=== PATIENT | female | born 1950 | race Caucasian/White ===

== ENCOUNTER 2018-08-29 06:10 | Day surgery (SDC) | payer OTHER, MEDICARE ==
[2018-08-28 10:54] VITALS: BMI 18.9
[~2018-08-29 06:10] MED LIST: TOBRAMYCIN/DEXAMETHASONE OPHTH. OINTMENT 1 TUBE OS ONE
[2018-08-29] MEDS: TROPICAMIDE 1% OPHTH SOLN 15 ML BOTTLE OP SCH ×3 (06:40→07:15)
[2018-08-29] MEDS: CIPROFLOXACIN HCL 0.3% OPHTH 2.5ML BOTTLE OP SCH ×3 (06:40→07:15)
[2018-08-29] MEDS: KETOROLAC TROMETHAMINE 0.5% EYE DROP 1 DROP DROPS OP SCH ×3 (06:40→07:15)
[2018-08-29] MEDS: PHENYLEPHRINE 2.5% OPHTH SOLN 15 ML BOTTLE OP SCH ×3 (06:40→07:15)
[2018-08-29] MEDS ORDERED: TROPICAMIDE 0.5% OPHTHALMIC SOLN 15 ML BOTTLE ONE (06:44)
[2018-08-29] MEDS ORDERED: ACETAMINOPHEN 325 MG TABLET (FP) PO PRN (07:00)
[2018-08-29] MEDS ORDERED: CHONDROITIN SU A/HYALUR SOD 1 KIT ONE (07:10)
[2018-08-29] MEDS ORDERED: TETRACAINE 0.5% OPHTH SOLN 2 ML BOTTLE ONE (07:21)
[2018-08-29] MEDS ORDERED: EPINEPHrine/PF 1 MG/1 ML (1:1,000) AMPULE ONE (07:21)
[2018-08-29] MEDS ORDERED: TOBRAMYCIN/DEXAMETHASONE OPHTH. OINTMENT 1 TUBE ONE (07:21)
[2018-08-29] MEDS ORDERED: LIDOCAINE HCL/PF 1% SDV 5ML VIAL ONE (07:21)
[2018-08-29] MEDS ORDERED: POVIDONE-IODINE 5% OPHTHALMIC PREP 30 ML SOLUTION ONE (07:22)
--- NOTE | 2018-08-29 07:26 | HP ---
- Patient Scheduled date of Surgery: 08/29/18 Scheduled Surgical Procedure: Phacoemulsification and cataract extraction with PCIOL Affected Eye: Left Chief Complaint (Indication for surgery): Decreased vision affecting ADLs - Ocular History Other Eye History: Other (HZO, narrow angles, OHTN) Eye Medications: besivance Previous Eye Surgery: none - Medical History Current Medications: Ambulatory Orders Albuterol Sulfate [Proair Respiclick] 90 mcg IH Q4H 08/28/18 Calcium Carb/Vitamin D3/Vit K1 [Calcium + D Soft Chewable Tab] 1 each PO DAILY 08/28/18 Fluticasone Furoate [Arnuity Ellipta] 200 mcg IH DAILY 08/28/18 Furosemide [Lasix] 20 mg PO DAILY 08/28/18 Potassium Chloride [Klor-Con M10] 10 meq PO DAILY 08/28/18 Prednisone 5 mg PO BID 08/28/18 Allergies/Adverse Reactions: Allergies Allergy/AdvReac Type Severity Reaction Status Date / Time No Known Allergies Allergy Verified 08/29/18 07:20 Ocular Examination - Best Corrected Visual Acuity Distance: Right eye: 20/30 Distance: Left eye: 20/40 - External/Slit Lamp Examination Abnormalities: shallow peripherally - Intraocular Pressure Intraocular Pressure - Right eye: 17 Intraocular Pressure-Left eye: 19 - Lens Lens: 2+ NS 1+ cortical +1 psc - Vitreous/Retina Vitreous/Retina: c:d 0.2 m/v/p wnl - Special Examination M - Right eye: -1.50-0.50 x 90 M - Left eye: -0.75- 0.75 x 090 K - Right eye: 46.25/47 x 180 K - Left eye: 46.50/47.75 x 175 AL - Right eye: 23.24 AL - Left eye: 23.11 IOL bag: +18.5 AUOOTO IOL sulcus: +17.5 MN60 AC IOL AC: +15.0 MTA 4uo - Impression Impression: Cataract Left Eye - Plan Plan: Phacoemulsification and cataract extraction - IOL Left eye Post-hospital care will be provided in office on: 08/30/18
--- NOTE | 2018-08-29 07:28 | HP ---
History & Physical Update - History History: Change (see notes) (malignant neoplasm of tongue) - Physical Physical: No Change - Assessment Assessment: No Change - Plan Plan: No Change (Reviewed Dr. Hermosillo's H an P from 08/02/18 no , maligant neoplasm of tongue)
[2018-08-29] MEDS ORDERED: MIDAZOLAM HCL 2 MG/2 ML SINGLE DOSE VIAL ONE (07:53)
[2018-08-29] MEDS ORDERED: TETRACAINE 0.5% OPHTH SOLN 2 ML BOTTLE OS ONE (07:58)
[2018-08-29] MEDS ORDERED: POVIDONE-IODINE 5% OPHTHALMIC PREP 30 ML SOLUTION OS ONE (07:59)
[2018-08-29] MEDS ORDERED: LIDOCAINE HCL 1% PRESERVATIVE FREE - 30ML VIAL IO ONE (08:06)
[2018-08-29] MEDS ORDERED: BSS (NA/CA/MG/K) BALANCED SALT SOLUTION OPHTH SOLN 15 ML BOTTLE OS ONE ×2 (08:06)
[2018-08-29] MEDS ORDERED: CHONDROITIN SU A/HYALUR SOD 1 KIT IO ONE (08:06)
[2018-08-29] MEDS ORDERED: EPINEPHrine/PF 1 MG/1 ML (1:1,000) AMPULE SQ ONE (08:13)
[2018-08-29] MEDS ORDERED: TOBRAMYCIN/DEXAMETHASONE OPHTH. OINTMENT 1 TUBE OS ONE (08:29)
--- NOTE | 2018-08-29 08:44 | OP ---
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
[2018-08-29 09:40] VITALS: TEMP 98
[2018-08-29 10:45] VITALS: BP 117/60; PULSE 87
--- NOTE | 2018-08-29 10:50 | OP ---
DATE OF OPERATION: 08/29/2018 DATE OF DICTATION: 08/29/2018 PREOPERATIVE DIAGNOSIS: Nuclear sclerotic cataract, left eye. POSTOPERATIVE DIAGNOSIS: Nuclear sclerotic cataract, left eye. PROCEDURE: Phacoemulsification and cataract extraction with insertion of posterior chamber intraocular lens, left eye. SURGEON: Farnaz Elam MD FEED MILLER: None. ANESTHESIA: Topical. ANESTHESIOLOGIST: Mary Hadley MD OPERATIVE PROCEDURE: The patient received Tetravisc eye drops and was gently sedated and prepped and draped in the usual sterile fashion to expose only the left eye. Ophthalmic Betadine was instilled into the inferior fornix and the lashes were taped out of the surgical field. An eyelid speculum was placed into the left eye. A paracentesis was made in inferior temporal clear cornea at the limbus. Next, 0.5 mL of non-preserved lidocaine 1% was injected into the anterior chamber. A 2.4-mm keratome was then used to create the main incision in temporal clear cornea at the limbus. A continuous curvilinear capsulorrhexis was performed using a cystitome and Utrata forceps. Hydrodissection of the lens cortex was performed using BSS on a cannula until the nucleus was noted to be freely rotating. The phacoemulsification tip was inserted via the main wound and used to sculpt two perpendicular grooves into the lens nucleus. The nucleus was cracked into four quadrants. Each quadrant was lifted out of the capsule, into the iris plane, and individually phacoemulsified. The remaining cortical material was then aspirated using the irrigation and aspiration port. The capsular bag was inflated using Provisc and a preloaded AcrySof lens model [id number] power +18.5 diopters was injected into the capsular bag. It was centered using a Sinskey hook. The residual viscoelastic material was removed from the anterior chamber using irrigation and aspiration. The wound edges were hydrated using BSS. The wound was tested for leakage. It was found to be watertight. TobraDex ointment was placed into the eye, the speculum was removed from the eye, and the eyelid was closed. A sterile dressing and shield were placed over the eye and the patient was transferred to the recovery room in stable condition. Told to follow up in 1 day. FARNAZ ELAM M.D. [id number]
== END 2018-08-29 10:00 | disposition home or self-care (01) ==
LOC: JASU-SURG 06:10 → EDSEX 11:00
PROVIDERS: ATTEND Ophthalmology
PROC: 08RK3JZ Replacement of Left Lens with Synthetic Substitute, Percutaneous Approach (ICD-10-PCS; principal; 2018-08-29 07:30)
DX: H25.12 Age-related nuclear cataract, left eye (principal)

== ENCOUNTER 2019-06-05 08:27 | Day surgery (SDC) | payer OTHER, MEDICARE ==
[2019-06-04 20:05] VITALS: BMI 19.3
--- NOTE | 2019-06-05 07:27 | HP ---
- Patient Scheduled date of Surgery: 06/05/19 Scheduled Surgical Procedure: Phacoemulsification and cataract extraction with PCIOL Affected Eye: Right Chief Complaint (Indication for surgery): Decreased vision affecting ADLs, Decreased vision impairing reading - Ocular History Other Eye History: Other (Blepharitis, right HZO, narrow angles , OHTN) Eye Medications: vigamox 3/0, dorzolamide 3/3 Previous Eye Surgery: s/p ce/pciol os - Medical History Illnesses: COPD (on home ox), Other (arthiris, vertigo) Current Medications: Ambulatory Orders Albuterol Sulfate [Proair Respiclick] 90 mcg IH Q4H 08/28/18 Calcium Carb/Vitamin D3/Vit K1 [Calcium + D Soft Chewable Tab] 1 each PO DAILY 08/28/18 Fluticasone Furoate [Arnuity Ellipta] 200 mcg IH DAILY 08/28/18 Furosemide [Lasix] 20 mg PO DAILY 08/28/18 Potassium Chloride [Klor-Con M10] 10 meq PO DAILY 08/28/18 Prednisone 5 mg PO BID 08/28/18 Allergies/Adverse Reactions: Allergies Allergy/AdvReac Type Severity Reaction Status Date / Time No Known Allergies Allergy Verified 08/29/18 07:20 Ocular Examination - Best Corrected Visual Acuity Distance: Right eye: 20/50- Distance: Left eye: 20/20 - External/Slit Lamp Examination Abnormalities: K corneal vericillata, shallow AC - Intraocular Pressure Intraocular Pressure - Right eye: 15 Intraocular Pressure-Left eye: 15 - Lens Lens: 1+ Ns 1+ cortical - Vitreous/Retina Vitreous/Retina: c;d 0.3 m/v/p wnl - Special Examination M - Right eye: -1.50-0.50 x 090 M - Left eye: plano K - Right eye: 46.25/47 x 180 K - Left eye: 45.5/47.25 x 160 AL - Right eye: 23.24 AL - Left eye: 23.11 IOL bag: +18.5 AUOOTO IOL sulcus: +17.5 MN60AC IOL AC: +15.0 MTA4uo - Impression Impression: Cataract Right Eye - Plan Plan: Phacoemulsification and cataract extraction - IOL Right eye Post-hospital care will be provided in office on: 06/06/19
--- NOTE | 2019-06-05 07:28 | HP ---
History & Physical Update - History History: No Change - Physical Physical: No Change - Assessment Assessment: No Change - Plan Plan: No Change (Dr Hermosillo's note reviewed 05/16/19)
[~2019-06-05 08:27] MED LIST changes: +ACETAMINOPHEN 325 MG TABLET (FP) PO PRN; +CIPROFLOXACIN HCL 0.3% OPHTH 2.5ML BOTTLE OP SCH; +KETOROLAC TROMETHAMINE 0.5% EYE DROP 1 DROP DROPS OP SCH; +PHENYLEPHRINE 2.5% OPHTH SOLN 15 ML BOTTLE OP SCH; -TOBRAMYCIN/DEXAMETHASONE OPHTH. OINTMENT 1 TUBE OS ONE; +TROPICAMIDE 1% OPHTH SOLN 15 ML BOTTLE OP SCH
[2019-06-05] MEDS ORDERED: KETOROLAC TROMETHAMINE 0.5% EYE DROP 1 DROP DROPS ONE (08:51)
[2019-06-05] MEDS ORDERED: CIPROFLOXACIN HCL 0.3% OPHTH 2.5ML BOTTLE ONE (08:51)
[2019-06-05] MEDS ORDERED: TROPICAMIDE 1% OPHTH SOLN 15 ML BOTTLE ONE (08:51)
[2019-06-05] MEDS ORDERED: PHENYLEPHRINE 2.5% OPHTH SOLN 15 ML BOTTLE ONE (08:51)
[2019-06-05] MEDS ORDERED: KETOROLAC TROMETHAMINE 0.5% EYE DROP 1 DROP DROPS OD ONE ×3 (09:00→09:20)
[2019-06-05] MEDS ORDERED: PHENYLEPHRINE 2.5% OPHTH SOLN 15 ML BOTTLE OD ONE ×3 (09:00→09:20)
[2019-06-05] MEDS ORDERED: TROPICAMIDE 1% OPHTH SOLN 15 ML BOTTLE OD ONE ×3 (09:00→09:20)
[2019-06-05] MEDS ORDERED: CIPROFLOXACIN HCL 0.3% OPHTH 2.5ML BOTTLE OD ONE ×3 (09:00→09:20)
[2019-06-05] MEDS ORDERED: MIDAZOLAM HCL 2 MG/2 ML SINGLE DOSE VIAL ONE (10:07)
[2019-06-05] MEDS ORDERED: LIDOCAINE HCL 1% PRESERVATIVE FREE - 30ML VIAL IO ONE (10:53)
[2019-06-05] MEDS ORDERED: TETRACAINE 0.5% HCL 0.6ML DROPPER.BOTTLE OD ONE (10:53)
[2019-06-05] MEDS ORDERED: EPINEPHrine/PF 1 MG/1 ML (1:1,000) AMPULE SQ ONE (10:54)
[2019-06-05] MEDS ORDERED: TOBRAMYCIN 0.3% OPHTH OINT 3.5 GM OD ONE (10:57)
--- NOTE | 2019-06-05 11:03 | OP ---
Ophthalmology Operative Note Pre-Operative Diagnosis: Cataract Affected Eye: Right Operation: Phacoemulsification and cataract extraction with PCIOL Findings: nuclear sclerotic cataract right eye Post-Operative Diagnosis: Same as Pre-op Consumer Affairs Specialist: None Anesthesiologist: Haydee Shepherd Anesthesia: Topical Specimens Removed: none Estimated blood loss: <1 cc Operative Report Dictated: Yes
[2019-06-05] MEDS ORDERED: TETRACAINE 0.5% OPHTH SOLN 2 ML BOTTLE ONE (11:12)
[2019-06-05] MEDS ORDERED: EPINEPHrine/PF 1 MG/1 ML (1:1,000) AMPULE ONE (11:12)
[2019-06-05 12:57] VITALS: BP 117/58; PULSE 79
--- NOTE | 2019-06-05 13:27 | OP ---
DATE OF OPERATION: DATE OF DICTATION: 06/05/2019 PREOPERATIVE DIAGNOSIS: Nuclear sclerotic cataract, right eye. POSTOPERATIVE DIAGNOSIS: Nuclear sclerotic cataract, right eye. PROCEDURE: Phacoemulsification and cataract extraction with insertion of posterior chamber intraocular lens, right eye. SURGEON: Farnaz Elam MD SCANNING CLERK: None. ANESTHESIA: Topical. ANESTHESIOLOGIST: Haydee Shepherd MD OPERATIVE PROCEDURE: The patient received Tetracaine eye drops and was gently sedated and prepped and draped in the usual sterile fashion so as to expose only the right eye. Ophthalmic Betadine was instilled into the inferior fornix and lashes were taped out of the surgical field. An eyelid speculum was placed into the right eye. Paracentesis was made in superior temporal clear cornea at the limbus. Then 0.5 mL of nonpreserved lidocaine 1% was injected into the anterior chamber and then 1 mL of dilute epinephrine 1:10,000 was injected into the anterior chamber to improve pupillary dilation. Viscoelastic material was instilled into the anterior chamber via the paracentesis. A 2.4-mm keratome blade was then used to create the main incision in temporal clear cornea at the limbus. A continuous curvilinear capsulorhexis was performed using a cystotome and Utrata forceps. Hydrodissection of the lens cortex was performed using BSS on a cannula until the nucleus was noted to be freely rotating. The phacoemulsification tip was then inserted via the main wound and used to scope 2 perpendicular grooves into the lens nucleus. The nucleus was cracked into 4 quadrants. Each quadrant was lifted out of the capsule into the iris plane and individually phacoemulsified. The remaining cortical material was then aspirated using the irrigation/aspiration port. The capsular bag was inflated using ProVisc and a preloaded AcrySof lens model [id number] power +18.5 diopters was injected into the capsular bag. It was centered using a Sinskey hook. The residual viscoelastic material was removed from the anterior chamber using irrigation and aspiration. The wound edges were hydrated using BSS. The wound was tested for leakage and was found to be watertight. Tobradex ointment was placed in the eye, and the speculum was removed from the eye, and the eyelid was closed. A sterile dressing and shield were placed over the eye. The patient was transferred to the recovery room in stable condition, told to follow up in 1 day. FARNAZ ELAM M.D. [id number]
[2019-06-05 13:40] VITALS: TEMP 100
== END 2019-06-05 12:35 | disposition home or self-care (01) ==
LOC: JASU-SURG 08:27
PROVIDERS: ATTEND Ophthalmology
PROC: 08RJ3JZ Replacement of Right Lens with Synthetic Substitute, Percutaneous Approach (ICD-10-PCS; principal; 2019-06-05 10:30)
DX: H25.11 Age-related nuclear cataract, right eye (principal); I10 Essential (primary) hypertension; J44.9 Chronic obstructive pulmonary disease, unspecified; I50.9 Heart failure, unspecified